=== PATIENT | male | born 1935 | race Caucasian/White ===

== ENCOUNTER → 2016-06-20 | Outpatient (CLI) | payer MEDICARE ==
[~2016-06-20] MED LIST: BENI5TAB4; CENTTAB9; FOLI1TAB; LUNE1TAB5; METHATREXATE; PRED1; PRIL10CA; [UNRECOGNIZED DRUG - OTHER]
[2016-06-20 09:38] LABS: HEMATOCRIT 26.8 % (39.0-51.0); MEAN CELL VOLUME 72.6 FL (80.0-100.0); MEAN CORPUSCULAR HEMOGLOBIN 22.4 PG (27.0-34.0); MEAN CORPUSCULAR HGB CONC 30.8 % (32.0-36.0); PLATELET COUNT 294 TH/MM3 (150-450); RED BLOOD COUNT 3.68 MIL/MM3 (4.50-5.90); RED CELL DISTRIBUTION WIDTH 21.5 % (11.6-17.2); WHITE BLOOD COUNT 5.9 TH/MM3 (4.0-11.0)
[2016-06-20 09:41] LABS: REVIEW FLAG FINAL
[2016-06-20 10:28] LABS: FERRITIN 6 NG/ML (26-388); TRANSFERRIN IRON PROFILE 329 MG/DL (200-360)
== END ==
LOC: CLAB 09:12
PROVIDERS: ATTEND Family Medicine
DX: D64.9 Anemia, unspecified (principal); D86.9 Sarcoidosis, unspecified; Z12.5 Encounter for screening for malignant neoplasm of prostate
CPT/HCPCS: 36415; 80299; 82607; 82728; 82746; 83540; 83550; 85027; G0103